=== PATIENT | female | born 1950 | race Caucasian/White ===

== ENCOUNTER → 2016-11-15 | Outpatient (CLI) | payer MEDICARE ==
[~2016-11-15] MED LIST: ADVIL100 MG/5 M PO; BACTRIM DS 8001 TAB PO; BICILLIN MU IM; CLEOCIN HCL300 MG PO; ERGOCALCIFER50000 IU PO; FASTIN30 MG PO; FLEXERIL5 MG PO; LEVAQUIN 5500 MG/TA1; LEVAQUIN 5500 MG/TA1 PO; LEVAQUIN 750MG750 M1 PO; NEXIUM 20MG CAP20 MG PO; NO HOME MEDICATIONS; NORCO 325 MG-51 TAB PO; OMNICEF 300MG300 MG PO; PHENERGAN 25 TA25 MG PO; PHENTERMINE15 MG; TYLENOL 325MG325 MG PO; ZITHROMAX 250M250 MG PO; ZITHROMAX500 M2 PO; [UNRECOGNIZED DRUG - OTHER] IM
== END ==
LOC: COL.RAD 09:00
DX: M54.6 Pain in thoracic spine (principal); M54.5 Low back pain
CPT/HCPCS: A9503

== ENCOUNTER 2016-11-20 09:27 | Day surgery (SDC) | payer MEDICARE ==
[2008-12-27 15:04] VITALS: BP 163/94
[~2016-11-20] VITALS: Ht 157.6 cm; Wt 88.6 kg
[2016-11-20] VITALS (8 sets, daily range): BP systolic 109–158; BP diastolic 70–96; PULSE 78–90; TEMP 97.7
== END 2016-11-20 15:05 | disposition home or self-care (01) ==
LOC: COL.RAD 09:27
DX: M46.24 Osteomyelitis of vertebra, thoracic region (principal); Z85.3 Personal history of malignant neoplasm of breast; Z85.42 Personal history of malignant neoplasm of other parts of uterus
CPT/HCPCS: J2250; J3010

== ENCOUNTER → 2016-11-25 | Outpatient (REF) | LOC: ZLAB.WCH 11:33 | DX: Z01.89 Encounter for other specified special examinations (principal) ==

== ENCOUNTER → 2016-12-02 | Outpatient (REF) | LOC: ZLAB.WCH 19:04 | DX: Z01.89 Encounter for other specified special examinations (principal) ==

== ENCOUNTER → 2016-12-08 | Outpatient (REF) | LOC: ZLAB.WCH 15:53 | DX: Z01.89 Encounter for other specified special examinations (principal) ==

== ENCOUNTER → 2016-12-14 | Outpatient (REF) | LOC: ZLAB.WCH 10:43 | DX: Z01.89 Encounter for other specified special examinations (principal) ==

== ENCOUNTER → 2016-12-21 | Outpatient (REF) | LOC: ZLAB.WCH 15:55 | DX: Z01.89 Encounter for other specified special examinations (principal) ==

== ENCOUNTER → 2016-12-29 | Outpatient (REF) | LOC: ZLAB.WCH 13:39 | DX: Z01.89 Encounter for other specified special examinations (principal) ==

== ENCOUNTER → 2017-01-18 | Outpatient (CLI) | payer MEDICARE | LOC: MC.RAD 09:40 | DX: Z12.31 Encounter for screening mammogram for malignant neoplasm of breast (principal); Z85.3 Personal history of malignant neoplasm of breast; Z90.11 Acquired absence of right breast and nipple ==

== ENCOUNTER → 2017-01-19 | Outpatient (REF) | LOC: ZLAB.WCH 11:35 | DX: Z01.89 Encounter for other specified special examinations (principal) ==

== ENCOUNTER 2017-09-17 15:22 | Inpatient (IN) | payer MEDICARE ==
[~2017-09-17] VITALS: Ht 160 cm; Wt 99.8 kg
[2017-09-17 15:47] LABS: COLLECTION METHOD CLEAN CATCH
[2017-09-17] MEDS ORDERED: PEN-VEE K500 MG PO (15:48)
[2017-09-17] MEDS ORDERED: NEURONTIN300 MG/CAP PO (15:49)
[2017-09-17 16:13] LABS: MUCOUS Present /lpf; PH 5 (5-8); URINE APPEARANCE Hazy; URINE BACTERIA Rare /hpf; URINE BILIRUBIN Negative (NEGATIVE); URINE BLOOD 1+ (NEGATIVE); URINE COLOR Yellow; URINE GLUCOSE 1+ (NEGATIVE); URINE KETONE Negative (NEGATIVE); URINE LEUKOCYTE ESTERASE 1+ (NEGATIVE); URINE PROTEIN(semi-quant) Negative (NEGATIVE); URINE UROBILINOGEN Negative (NEGATIVE); URINE WBC 20-50 /hpf
[2017-09-17 16:26] LABS: BASO % 0.1 % (0.0-2.0); EOS # 0.1 (0.0-0.7); EOS % 0.8 % (0-4.0); GRAN # 9.8 (1.4-6.5); GRAN % 82.8 % (42.2-75.2); HEMATOCRIT 41.6 % (37.0-47.0); HEMOGLOBIN 13.8 g/dl (12.5-16.0); LYMPH # 1.4 (1.2-3.4); MEAN CELL VOLUME 98 fl (80.0-100.0); MEAN CORPUSCULAR HEMOGLOBIN 33 pg (27.0-31.0); MEAN CORPUSCULAR HGB CONC 33 g/dl (33.0-37.0); MEAN PLATELET VOLUME 10.2 fl (7.4-10.4); MONO # 0.5 (0.1-0.6); PLATELET COUNT 163 K/mm3 (130-400); RED BLOOD COUNT 4.24 M/mm3 (4.10-5.30); WHITE BLOOD COUNT 11.8 K/mm3 (4.8-10.8)
[2017-09-17 16:43] LABS: ADJUSTED CALCIUM 9.5 mg/dL (8.4-10.2); ALBUMIN 4.3 gm/dL (3.5-5.0); CALCIUM 9.7 mg/dL (8.4-10.2); CREATININE, serum 0.83 mg/dL (0.52-1.25); POTASSIUM 3.8 mmol/L (3.4-5.0); TOTAL PROTEIN 7.2 gm/dL (6.4-8.2)
[2017-09-17 18:34] VITALS: BP 126/82; PULSE 102; TEMP 100.5
[2017-09-17 19:41] VITALS: BP 121/61; PULSE 104; TEMP 100.3
[2017-09-17 23:33] VITALS: BP 126/73; PULSE 107; TEMP 100.8
[2017-09-18 03:43] VITALS: BP 103/56; PULSE 89; TEMP 100.6
[2017-09-18 07:15] VITALS: BP 119/65; PULSE 89; TEMP 99.4
[2017-09-18 07:16] LABS: BASO % 0.2 % (0.0-2.0); EOS % 0.1 % (0-4.0); GRAN # 13.9 (1.4-6.5); GRAN % 86.1 % (42.2-75.2); HEMOGLOBIN 12.1 g/dl (12.5-16.0); LYMPH # 1.3 (1.2-3.4); LYMPH % 8.1 % (20.0-51.0); MEAN CELL VOLUME 99 fl (80.0-100.0); MEAN CORPUSCULAR HEMOGLOBIN 33 pg (27.0-31.0); MEAN CORPUSCULAR HGB CONC 34 g/dl (33.0-37.0); MEAN PLATELET VOLUME 10.6 fl (7.4-10.4); MONO # 0.8 (0.1-0.6); MONO % 4.8 % (1.7-9.3); PLATELET COUNT 124 K/mm3 (130-400); RED BLOOD COUNT 3.64 M/mm3 (4.10-5.30); WHITE BLOOD COUNT 16.1 K/mm3 (4.8-10.8)
[2017-09-18 07:21] LABS: HEMATOCRIT 35.9 % (37.0-47.0)
[2017-09-18 07:37] LABS: CALCIUM 8.7 mg/dL (8.4-10.2); CREATININE, serum 0.74 mg/dL (0.52-1.25); MAGNESIUM 1.5 mg/dL (1.6-2.3); POTASSIUM 3.7 mmol/L (3.4-5.0)
[2017-09-18 10:50] VITALS: BP 125/61; PULSE 83; TEMP 99.4
[2017-09-18 16:03] VITALS: BP 101/47; PULSE 83; TEMP 100.7
[2017-09-19 03:38] VITALS: BP 104/50; PULSE 82; TEMP 98.5
[2017-09-19 06:57] VITALS: BP 115/62; PULSE 72; TEMP 98.5
[2017-09-19 07:31] LABS: BASO % 0.1 % (0.0-2.0); EOS # 0.1 (0.0-0.7); EOS % 0.8 % (0-4.0); GRAN # 6.1 (1.4-6.5); GRAN % 76.9 % (42.2-75.2); LYMPH # 1.2 (1.2-3.4); LYMPH % 15.5 % (20.0-51.0); MEAN CELL VOLUME 100 fl (80.0-100.0); MEAN CORPUSCULAR HGB CONC 33 g/dl (33.0-37.0); MEAN PLATELET VOLUME 10.9 fl (7.4-10.4); MONO # 0.5 (0.1-0.6); MONO % 6.3 % (1.7-9.3); PLATELET COUNT 108 K/mm3 (130-400); RED BLOOD COUNT 3.18 M/mm3 (4.10-5.30); WHITE BLOOD COUNT 7.9 K/mm3 (4.8-10.8)
[2017-09-19 07:35] LABS: HEMATOCRIT 31.8 % (37.0-47.0); HEMOGLOBIN 10.5 g/dl (12.5-16.0); MEAN CORPUSCULAR HEMOGLOBIN 33 pg (27.0-31.0)
[2017-09-19 07:45] LABS: CALCIUM 8.8 mg/dL (8.4-10.2); CREATININE, serum 0.77 mg/dL (0.52-1.25); POTASSIUM 3.6 mmol/L (3.4-5.0)
[2017-09-19 10:50] VITALS: BP 108/49; PULSE 81; TEMP 99
[2017-09-19 16:07] VITALS: BP 127/86; PULSE 70; TEMP 98.5
[2017-09-19 21:25] VITALS: BP 111/55; PULSE 70; TEMP 98.5
[2017-09-19 23:20] VITALS: BP 121/61; PULSE 69; TEMP 98.5
[2017-09-20 08:00] VITALS: BP 117/69; PULSE 80; TEMP 98.5
[2017-09-20 08:24] LABS: BASO % 0.5 % (0.0-2.0); EOS # 0.2 (0.0-0.7); EOS % 4.2 % (0-4.0); GRAN # 2.1 (1.4-6.5); GRAN % 53.8 % (42.2-75.2); LYMPH # 1.2 (1.2-3.4); LYMPH % 30.8 % (20.0-51.0); MEAN CELL VOLUME 99 fl (80.0-100.0); MEAN CORPUSCULAR HGB CONC 33 g/dl (33.0-37.0); MEAN PLATELET VOLUME 10.5 fl (7.4-10.4); MONO # 0.4 (0.1-0.6); MONO % 10.2 % (1.7-9.3); PLATELET COUNT 123 K/mm3 (130-400); RED BLOOD COUNT 3.45 M/mm3 (4.10-5.30); WHITE BLOOD COUNT 3.8 K/mm3 (4.8-10.8)
[2017-09-20 08:30] LABS: HEMATOCRIT 34.3 % (37.0-47.0); HEMOGLOBIN 11.3 g/dl (12.5-16.0); MEAN CORPUSCULAR HEMOGLOBIN 33 pg (27.0-31.0)
[2017-09-20 08:34] LABS: CALCIUM 9.3 mg/dL (8.4-10.2); CREATININE, serum 0.78 mg/dL (0.52-1.25); MAGNESIUM 1.9 mg/dL (1.6-2.3); POTASSIUM 3.8 mmol/L (3.4-5.0)
[2017-09-20 12:33] VITALS: BP 130/64; PULSE 82; TEMP 98.6
[2017-09-20 15:32] VITALS: BP 111/62; PULSE 72; TEMP 98.6
[2017-09-20 19:56] VITALS: BP 136/66; PULSE 78; TEMP 98.9
[2017-09-21 03:49] VITALS: BP 127/70; PULSE 77; TEMP 98.2
[2017-09-21 07:53] VITALS: BP 120/72; PULSE 71; TEMP 98.2
[2017-09-21] MEDS ORDERED: ROCEPHIN 2GM VIAL21 IV (08:15)
[2017-09-21 09:27] LABS: BASO % 0.6 % (0.0-2.0); EOS # 0.2 (0.0-0.7); EOS % 5.1 % (0-4.0); GRAN # 1.7 (1.4-6.5); GRAN % 46.5 % (42.2-75.2); LYMPH # 1.3 (1.2-3.4); LYMPH % 36.3 % (20.0-51.0); MEAN CELL VOLUME 100 fl (80.0-100.0); MEAN CORPUSCULAR HGB CONC 33 g/dl (33.0-37.0); MEAN PLATELET VOLUME 10.9 fl (7.4-10.4); MONO # 0.4 (0.1-0.6); MONO % 10.7 % (1.7-9.3); PLATELET COUNT 158 K/mm3 (130-400); RED BLOOD COUNT 3.57 M/mm3 (4.10-5.30); WHITE BLOOD COUNT 3.6 K/mm3 (4.8-10.8)
[2017-09-21 09:32] LABS: HEMATOCRIT 35.6 % (37.0-47.0); HEMOGLOBIN 11.6 g/dl (12.5-16.0); MEAN CORPUSCULAR HEMOGLOBIN 32 pg (27.0-31.0)
[2017-09-21 09:35] LABS: CALCIUM 9.3 mg/dL (8.4-10.2); CREATININE, serum 0.77 mg/dL (0.52-1.25)
== END 2017-09-21 10:40 | disposition home or self-care (01) | DRG 872 ==
LOC: COL.ER 15:22 → MEDICAL 16:51 → EDBEDREQ 17:33 → MEDICAL 09-21 10:40
PROVIDERS: Family Medicine; Internal Medicine; Physician Assistant
DX: A40.1 Sepsis due to streptococcus, group B (principal); L03.113 Cellulitis of right upper limb; N39.0 Urinary tract infection, site not specified; R65.20 Severe sepsis without septic shock; I10 Essential (primary) hypertension; Z23 Encounter for immunization; Z85.3 Personal history of malignant neoplasm of breast; Z85.42 Personal history of malignant neoplasm of other parts of uterus; B95.1 Streptococcus, group B, as the cause of diseases classified elsewhere; R73.9 Hyperglycemia, unspecified; E83.42 Hypomagnesemia
CPT/HCPCS: 99222-AI; 99232-AI; 99239; J0696; J0712; J1170; J1644; J2185; J2405; J3475; J7030

== ENCOUNTER 2017-11-29 12:30 | Outpatient (RCR) | payer MEDICARE ==
[~2017-11-29 12:30] MED LIST changes: +NEURONTIN300 MG/CAP PO; +PEN-VEE K500 MG PO; +ROCEPHIN 2GM VIAL21 IV
== END 2018-01-08 14:16 | disposition home or self-care (01) ==
LOC: WSPT 12:30
DX: I89.0 Lymphedema, not elsewhere classified (principal)
CPT/HCPCS: G8987-GP; G8988-GP; G8989-GP

== ENCOUNTER → 2018-08-05 | Outpatient (CLI) | payer MEDICARE | LOC: MC.RAD 10:00 | DX: Z12.31 Encounter for screening mammogram for malignant neoplasm of breast (principal); Z98.82 Breast implant status; Z90.11 Acquired absence of right breast and nipple ==

== ENCOUNTER 2018-12-12 14:30 | Outpatient (RCR) | payer MEDICARE | END 2018-12-18 | disposition home or self-care (01) | LOC: WSPT | DX: I97.2 Postmastectomy lymphedema syndrome (principal); Z87.2 Personal history of diseases of the skin and subcutaneous tissue; Z85.3 Personal history of malignant neoplasm of breast; Z85.42 Personal history of malignant neoplasm of other parts of uterus; Z85.038 Personal history of other malignant neoplasm of large intestine; Z90.49 Acquired absence of other specified parts of digestive tract; Z90.11 Acquired absence of right breast and nipple | CPT/HCPCS: G8987-GP; G8988-GP ==

== ENCOUNTER → 2019-05-05 | Outpatient (CLI) | payer MEDICARE | LOC: COL.RAD 13:19 | DX: K76.0 Fatty (change of) liver, not elsewhere classified (principal); I72.8 Aneurysm of other specified arteries; R16.0 Hepatomegaly, not elsewhere classified; E11.9 Type 2 diabetes mellitus without complications; I10 Essential (primary) hypertension; R06.09 Other forms of dyspnea; E66.01 Morbid (severe) obesity due to excess calories; Z68.41 Body mass index [BMI] 40.0-44.9, adult; Z90.49 Acquired absence of other specified parts of digestive tract; Z90.11 Acquired absence of right breast and nipple; Z98.82 Breast implant status | CPT/HCPCS: Q9967 ==

== ENCOUNTER → 2019-09-16 | Outpatient (CLI) | payer MEDICARE | LOC: MC.RAD 10:37 | DX: Z12.31 Encounter for screening mammogram for malignant neoplasm of breast (principal); Z90.11 Acquired absence of right breast and nipple; Z98.82 Breast implant status ==

== ENCOUNTER → 2019-09-26 | Outpatient (CLI) | payer MEDICARE | LOC: COL.VAS 11:11 | DX: Z13.6 Encounter for screening for cardiovascular disorders (principal); I82.A21 Chronic embolism and thrombosis of right axillary vein ==

== ENCOUNTER 2020-01-05 23:13 | Inpatient (IN) | payer MEDICARE ==
[~2020-01-05] VITALS: Ht 160 cm; Wt 98.0 kg
--- NOTE | 2020-01-05 23:15 | NUR ---
Received patient via stretcher via EMS. Patient is a transfer from [place]. With INT on left AC G20. Patient currently not in pain but she is shivering. She is alert and oriented. Informed Dr. Espinosa via phone call that patient is already at room. He ordered urology template order.
--- NOTE | 2020-01-05 23:30 | NUR ---
Patient complains of severe pain on left plank pain. About to start CASTING TESTER Morphine but relatives said that she is allergic to Morphine. Patient had an episode of vomiting. Ondansetron given. Informed Dr. Espinosa that patient cannot have Morphine and ordered to have Dilaudid CASTING TESTER.
[2020-01-05 23:41] VITALS: BP 180/88; PULSE 122; TEMP 101.5
[2020-01-06] VITALS (229 sets, daily range): BP systolic 90–123; BP diastolic 58–85; PULSE 88–127; TEMP 98–103.1; O2SAT 90–98
--- NOTE | 2020-01-06 | NUR ---
Patient states she's on right arm restrict due to a right mastectomy. Placed ID band about arm restrict. Patient has a left chest port and says she's not using it.
--- NOTE | 2020-01-06 00:50 | NUR ---
Dilaudid PROCESS COACH started and verified with PALAK Ca. Informed patient about PROCESS COACH and how it works. Instructed patient that she's on NPO and I will do urine strain.
--- NOTE | 2020-01-06 01:50 | NUR ---
Patient is asleep and states pain has been reduced. Vital signs taken, BP= 123/62, Temp= 103.1F, SPO2= 88% on room air, BY=414. RR=21. Informed Dr. Espinosa via phone call and he ordered Tylenol PO for fever, Blood Culture X2, Rocephin 1 gm and Cystoscopy with left stent placement. Informed patient about the plans for surgery. Informed lab via phone call that patient is for blood culture.
--- NOTE | 2020-01-06 02:30 | NUR ---
Gave report to OR nurse via phone call. Tylenol given to patient for fever. Changed patient's gown. Rocephin not yet given as blood cultures were not done yet. Lanny informed Anesthesia office that patient is for surgery.
--- NOTE | 2020-01-06 02:50 | NUR ---
OR nurse informed me that MAINFRAME ANALYST need to be stopped before patient goes down for surgery. Last vital signs taken BP= 98/61, HR= 127, Temp=99.7, SPO2= 96% on O2 2l via NC, RR=20.
--- NOTE | 2020-01-06 04:15 | NUR ---
Received report from PALAK Matthew.
--- NOTE | 2020-01-06 04:31 | NUR ---
Received report from PACU nurseJana.
--- NOTE | 2020-01-06 04:34 | NUR ---
Patient arrives to ICU room 4 at this time. Patient is on 3L oxygen via nasal cannula with NS running to a peripheral line in the LAC. She is alert and oriented x 4. Denies presence of pain or discomfort. BP 90/78, HR 126, oral temp 98.2. Patient arrives with 16F dolan that is currently draining red-tinged urine. Patient reports presence of unaccessed implanted chest port, placed for chemo purposes, however, the patient has not received chemo for at least 5 years. Patient's coccyx is reddened although intact and her abdominal folds are red bilaterally. The right arm is swollen significantly, which the patient states is due to chronic/reoccuring cellulitis, which began roughly 1.5 years ago. Patient's medical history includes a right mastectomy; right arm is restricted and restricted extremity band is in place. Patient is currently resting quietly in bed, her son, Cholo is at the bedside. Will continue to monitor.
[2020-01-06 06:18] LABS: HEMOGLOBIN 10.8 g/dl (12.5-16.0); MEAN CELL VOLUME 100 fl (80.0-100.0); MEAN CORPUSCULAR HEMOGLOBIN 32 pg (27.0-31.0); MEAN CORPUSCULAR HGB CONC 32 g/dl (33.0-37.0); MEAN PLATELET VOLUME 11.3 fl (7.4-10.4); PLATELET COUNT 116 K/mm3 (130-400); REDCELL DISTRIBUTION WIDTH-CV 13.2 % (11.5-14.5)
[2020-01-06 06:56] LABS: CALCIUM 8.5 mg/dL (8.4-10.2); CREATININE, serum 1.29 (0.52-1.25); POTASSIUM 3.5 mmol/L (3.4-5.0)
--- NOTE | 2020-01-06 07:35 | NUR ---
Report given to PALAK West.
[2020-01-06 08:33] LABS: BAND 34 % (0-10); LYMPHOCYTE 1 % (20.0-51.0); NEUTROPHILS 64 % (42.0-75.2); PLATELET ESTIMATE DECREASED (NORMAL)
[2020-01-06 08:34] LABS: TOXIC GRANULATION PRESENT
--- NOTE | 2020-01-06 18:00 | NUR ---
[place] DCd Up to toilet for BM sm liquid brown. Assisted with pericare. Gait steady. Afebrile. BP improved. Received APAP for MURPHY. Pt reports has these at home.
--- NOTE | 2020-01-06 19:45 | NUR ---
Assessment complete; VS stable. Reports feeling some spasms during urination and reports a mild headache. Has belladonna suppository for spasms but pt denies offer for this medication. Requesting Tylenol for headache.
--- NOTE | 2020-01-06 23:36 | NUR ---
Report received from Lisa CID. Patient admitted from ICU to room 341 via wheelchair and up to the bathroom to void. Urine red tinged. Collection hat and strainer placed in bathroom. Patient alert and oriented x 4. SCD's reviewed and applied, however patient unable to remove and get to bathroom in time to void and voids on gown and bed pad. New gown applied and pullups given. See assessment. Home meds reviewed with patient and med reconciliation updated. Patient reports has bladder spasms with voids but declines medication.
[2020-01-07] MEDS ORDERED: TORVASTATIN PO (00:41)
[2020-01-07] MEDS ORDERED: PEN-VEE K500 MG PO (00:43)
[2020-01-07] MEDS ORDERED: VITAMIND3 5000 PO (00:44)
[2020-01-07] MEDS ORDERED: MOBIC15 MG PO (00:46)
[2020-01-07] MEDS ORDERED: OTEZLA PO (00:46)
[2020-01-07] MEDS ORDERED: LIPITOR 10MG10 MG PO (00:48)
--- NOTE | 2020-01-07 01:30 | NUR ---
Patient rests with eyes closed. Respirations with ease.
[2020-01-07 05:15] VITALS: BP 154/67; PULSE 120; TEMP 102.1
--- NOTE | 2020-01-07 05:45 | NUR ---
DR. JAVIER NOTIFIED OF PATIENTS TEMP 102.1 THEN RECHECK 101.5. PATIENT REPORTS HEADACHE 6/10 AND PAIN NOW JUST IN LEFT SIDE WHEN URINATES. HAS URINARY URGENCY AND FREQUENCY. NEW ORDERS RECEIVED FOR PYRIDIUM, TO GIVE TYLENOL AND CONTINUE HOME MEDS.
[2020-01-07 06:25] VITALS: PULSE 101; TEMP 101.5
--- NOTE | 2020-01-07 06:37 | NUR ---
REPORTS SHE WAS UP 7 TIMES DURING THE NIGHT TO THE BATHROOM BUT RESTED WELL IN BETWEEN.
--- NOTE | 2020-01-07 06:54 | NUR ---
REPORTS NAUSEA AND ZOFRAN GIVEN SIV.
[2020-01-07 08:20] VITALS: BP 130/59; PULSE 99; TEMP 98.7
[2020-01-07 08:53] LABS: MEAN CELL VOLUME 99 fl (80.0-100.0); MEAN CORPUSCULAR HEMOGLOBIN 32 pg (27.0-31.0); MEAN CORPUSCULAR HGB CONC 32 g/dl (33.0-37.0); MEAN PLATELET VOLUME 11.4 fl (7.4-10.4); PLATELET COUNT 110 K/mm3 (130-400); RED BLOOD COUNT 3.14 M/mm3 (4.10-5.30); REDCELL DISTRIBUTION WIDTH-CV 13.5 % (11.5-14.5)
[2020-01-07 09:06] LABS: CALCIUM 8.2 mg/dL (8.4-10.2); CREATININE, serum 0.93 (0.52-1.25); POTASSIUM 3.7 mmol/L (3.4-5.0)
[2020-01-07 09:37] LABS: BAND 23 % (0-10); LYMPHOCYTE 4 % (20.0-51.0); NEUTROPHILS 70 % (42.0-75.2); PLATELET ESTIMATE DECREASED (NORMAL); TOXIC GRANULATION PRESENT
--- NOTE | 2020-01-07 09:54 | NUR ---
SW met with the patient to discuss discharge plan. The patient lives alone in [place]. She states that she has family that live nearby. She reports independence with ADLs and does not have any DME. The patient's PCP is Dr. Barbra Satrr and she receives her medications at [facility]. She reports no difficulties obtaining her meds. The patient's DPOA-HC is in EMR. Her DPOA-HC is her children: Edelmira Landis (ph#[phone]), Cheryl Ball (ph#[phone]), or Cholo Ambrocio (ph#[phone]). The patient plans to return home upon discharge. No additional needs at this time.
--- NOTE | 2020-01-07 11:57 | NUR ---
Hospitalist team made aware of consults this am. Orders obtained. Zosyn per orders. Lr boluses per orders. Labs obtained. Patient continues to have urgency & frequency. Urine is orange from pyridum.
[2020-01-07 12:03] VITALS: BP 118/74; PULSE 82; TEMP 97.8
--- NOTE | 2020-01-07 13:00 | NUR ---
First visit from the strategic planning manager. No needs right now.
--- NOTE | 2020-01-07 17:08 | NUR ---
Patient continues to complain of headache. Hospitalist made aware reglan & benydrl for headache given per orders. Patient Iv in Ac went bad, 2 attempts were given for port acess, no blood return. New Iv to and started. Restricted right extremity. Ivf per orders & antibioitcs
[2020-01-07 17:14] VITALS: BP 162/78; PULSE 93; TEMP 98
--- NOTE | 2020-01-07 19:27 | NUR ---
Patient was able to sleep breifly, but still having a headache. She ate a small amount of her dinner. Bedside report to Eri CID
--- NOTE | 2020-01-07 20:00 | NUR ---
PATIENT RESTING IN BED DURING CHANGE OF SHIFT REPORT FROM DAY SHIFT NURSE. REPORTS CONTINUED HEADACHE DESPITE MEDS ALREADY GIVEN. DENIES DIZZINESS, CHEST PAIN/SHORTNESS OF BREATHING. DENIES H/O SINUS PROBLEMS OR CAFFEINE INTAKE.
[2020-01-07 21:35] VITALS: BP 162/83; PULSE 100; TEMP 98.1
--- NOTE | 2020-01-07 21:45 | NUR ---
PATIENT AGREED TO APPLY COOL WET WASHCLOTHE TO FOREHEAD/EYES FOR HEADACHE.
--- NOTE | 2020-01-07 22:43 | NUR ---
REPORTS COOL WET WASHCLOTHES HELPED WITH SOME OF THE EYE PRESSURE THAT WAS PRESENT WITH THE HEADACHE.
[2020-01-08 01:00] VITALS: BP 137/76; PULSE 108; TEMP 99.2
--- NOTE | 2020-01-08 02:19 | NUR ---
PATIENT RESTING IN BED WITH EYES CLOSED, BREATHING NONLABORED AND EVEN. IVF INFUSING WITHOUT INTERRUPTION. UP IN ROOM WHEN AWAKE WITHOUT PROBLEMS.
--- NOTE | 2020-01-08 03:37 | NUR ---
REPORTS STOOL IS LOOSE AT THIS TIME. REPORTS STILL HAS HEADACHE, COOL WET WASHCLOTHE HELPS WITH PRESSURE "BEHIND EYES". DENIES ANY OTHER NEEDS, REPORTS TYLENOL IS INEFFECTIVE FOR HEADACHE PAIN.
[2020-01-08 04:39] VITALS: BP 137/67; PULSE 83; TEMP 98.5
--- NOTE | 2020-01-08 07:00 | NUR ---
PATIENT IN BED RESTING DURING CHANGE OF SHIFT REPORT GIVEN TO DAY SHIFT NURSE. STILL COMPLAINS OF A HEADACHE THAT IS SOMEWHAT IMPROVED.
[2020-01-08 08:44] LABS: BASO % 0.3 % (0.0-2.0); EOS # 0.1 (0.0-0.7); EOS % 0.9 % (0-4.0); GRAN # 10.4 (1.4-6.5); GRAN % 81.8 % (42.2-75.2); HEMOGLOBIN 10.7 g/dl (12.5-16.0); LYMPH # 1.5 (1.2-3.4); LYMPH % 11.5 % (20.0-51.0); MEAN CELL VOLUME 96 fl (80.0-100.0); MEAN CORPUSCULAR HEMOGLOBIN 32 pg (27.0-31.0); MEAN CORPUSCULAR HGB CONC 33 g/dl (33.0-37.0); MONO # 0.6 (0.1-0.6); PLATELET COUNT 138 K/mm3 (130-400); RED BLOOD COUNT 3.39 M/mm3 (4.10-5.30); REDCELL DISTRIBUTION WIDTH-CV 13.1 % (11.5-14.5)
[2020-01-08 08:52] LABS: HEMATOCRIT 32.4 % (37.0-47.0)
[2020-01-08 08:55] VITALS: BP 168/89; PULSE 91; TEMP 97.9
[2020-01-08 08:57] LABS: CALCIUM 9.1 mg/dL (8.4-10.2); CREATININE, serum 0.91 (0.52-1.25); POTASSIUM 3.8 mmol/L (3.4-5.0)
--- NOTE | 2020-01-08 11:00 | NUR ---
PT IV INT'D THIS AM. RECIEVING CARLOS SCEDULED. ACCUCHECKS STARTED TODAY. PT STATED SHE IS FEELING ALOT BETTER TODAY THAT SHE HAD PRIOR. NO C/O PAIN THIS SHIFT.
[2020-01-08 11:45] VITALS: BP 149/75; PULSE 87; TEMP 98.7
--- NOTE | 2020-01-08 16:00 | NUR ---
PT HAD C/O LOOSE STOOLS THIS SHIFT. STATED SHE WAS GETTING SORE FROM HAVING STOOLS, PROVIDED SOME BARRIER CREAM FOR PT TO USE.
[2020-01-08 16:30] VITALS: BP 163/80; PULSE 90; TEMP 98.6
--- NOTE | 2020-01-08 19:00 | NUR ---
PATIENT SITTING ON SIDE OF BED DURING CHANGE OF SHIFT REPORT FROM DAY SHIFT NURSE. UP INDEPENDENTLY IN ROOM WITH NO COMPLAINTS OR PROBLEMS.
[2020-01-08 20:07] VITALS: BP 159/83; PULSE 84; TEMP 99.2
--- NOTE | 2020-01-08 22:35 | NUR ---
PATIENT REQUESTING ORDER FOR IMODIUM, CALLED DR FRANCIS REGARDING PATIENT'S REQUEST, ORDER FOR C.DIFF GIVEN AND STATED NO IMODIUM UNTIL PATIENT IS TESTED.
[2020-01-09] VITALS (7 sets, daily range): BP systolic 123–152; BP diastolic 60–102; PULSE 71–85; TEMP 97.8–98.3
--- NOTE | 2020-01-09 00:30 | NUR ---
PATIENT SLEEPING, DOES NOT AWAKEN WHEN DOOR TO ROOM OPENS, BREATHING NONLABORED AND EVEN.
--- NOTE | 2020-01-09 03:46 | NUR ---
UP IN RECLINER CHAIR, DOES NOT WANT TO REST IN BED FOR REMAINDER OF NIGHT DUE TO DISCOMFORT FROM LAYING IN BED. SPILLED USING URINAL ONTO BEDDING AND FLOOR OF ROOM. DENIES NEEDING PAIN MEDS CURRENTLY. TELE INTACT. UP USING WHEELED WALKER WITH NO PROBLEM. DENIES CHEST DISCOMFORT OR SHORTNESS OF BREATHE.
--- NOTE | 2020-01-09 03:49 | NUR ---
PATIENT SLEEPING WHEN ROOM ENTERED BY THIS NURSE, PATIENT AWAKENS TO NAME CALLED, SPEECH CLEAR. DENIES ANY NEEDS AT THIS TIME, RETURNED TO SLEEP, OBSERVED NONLABORED BREATHING WITH EVEN RATE.
--- NOTE | 2020-01-09 05:39 | NUR ---
Stool specimen collected and sent to lab as per DO for c.diff. Patient denies any further needs or concerns at this time. Up independently in room without any problems.
--- NOTE | 2020-01-09 06:53 | NUR ---
PATIENT SLEEPING, DOES NOT AWAKEN WHEN ROOM ENTERED, WITH CHANGE OF SHIFT REPORT GIVEN TO DAY SHIFT NURSE.
[2020-01-09 08:03] LABS: BASO % 0.4 % (0.0-2.0); EOS # 0.2 (0.0-0.7); EOS % 2.9 % (0-4.0); GRAN # 5.2 (1.4-6.5); GRAN % 68.8 % (42.2-75.2); HEMOGLOBIN 10.6 g/dl (12.5-16.0); LYMPH # 1.5 (1.2-3.4); LYMPH % 20.1 % (20.0-51.0); MEAN CELL VOLUME 97 fl (80.0-100.0); MEAN CORPUSCULAR HEMOGLOBIN 32 pg (27.0-31.0); MEAN CORPUSCULAR HGB CONC 33 g/dl (33.0-37.0); MEAN PLATELET VOLUME 10.4 fl (7.4-10.4); MONO # 0.5 (0.1-0.6); MONO % 6.8 % (1.7-9.3); PLATELET COUNT 142 K/mm3 (130-400); RED BLOOD COUNT 3.37 M/mm3 (4.10-5.30); REDCELL DISTRIBUTION WIDTH-CV 12.9 % (11.5-14.5)
[2020-01-09 08:04] LABS: HEMATOCRIT 32.6 % (37.0-47.0)
[2020-01-09 08:36] LABS: CALCIUM 9.2 mg/dL (8.4-10.2); CREATININE, serum 0.77 (0.52-1.25); MAGNESIUM 1.5 mg/dL (1.6-2.3); POTASSIUM 3.5 mmol/L (3.4-5.0)
--- NOTE | 2020-01-09 10:05 | NUR ---
Patient sitting up in bed. She continues to have frequent trips to the bathroom, stool & urine. Gi panel sent to lab. Hospitalist rounded & plan of care reviewed. Will continue to tommie.
--- NOTE | 2020-01-09 12:30 | NUR ---
Patient sitting up eating lunch. Patient aware of contact precautions due to loose stools & possible Cdiff. Patient Iv to L.hand leaking, new Iv to be attempted by Sophy CID for patient starting on cipro due to cultures results & sensitives.
--- NOTE | 2020-01-09 15:47 | NUR ---
SAILAJA met with the patient to follow up and review discharge plan. The patient is to tentatively discharge tomorrow, 01/09, pending cultures. The patient plans to return home. She did not have any questions or concerns for SW. SAILAJA presented and explained the IM form to the patient. The patient verbalized understanding, signed, and she was provided a copy. No additional needs at this time.
--- NOTE | 2020-01-09 18:28 | NUR ---
Patient independent in room. Denies pain. Report her loose stools have decreased & urgency & frequency also imporved. She is hopful for discharge home tmrw. Will report off to night nurse.
--- NOTE | 2020-01-09 19:00 | NUR ---
PT STILL HAVING LOOSE BROWN STOOLS FREQUENTLY. SEE MAR FOR IMMODIUM GIVEN. PT REPORTS RECTUM VERY SORE. PROVIDED PERINEAL LOTION SPRAY ALONG WITH OINTMENT.
--- NOTE | 2020-01-10 01:18 | NUR ---
PT UP TO BR. HAD ANOTHER BROWN SMALL THICK LOOSE STOOL. SEE MAR FOR IMMODIUM.
[2020-01-10 04:33] VITALS: BP 139/64; PULSE 79; TEMP 98.2
[2020-01-10 06:57] LABS: BASO % 0.5 % (0.0-2.0); CALCIUM 8.8 mg/dL (8.4-10.2); CREATININE, serum 0.59 (0.52-1.25); EOS # 0.2 (0.0-0.7); EOS % 2.9 % (0-4.0); GRAN % 61.3 % (42.2-75.2); HEMOGLOBIN 10.5 g/dl (12.5-16.0); LYMPH # 1.7 (1.2-3.4); LYMPH % 25.7 % (20.0-51.0); MEAN CELL VOLUME 96 fl (80.0-100.0); MEAN CORPUSCULAR HEMOGLOBIN 33 pg (27.0-31.0); MEAN CORPUSCULAR HGB CONC 34 g/dl (33.0-37.0); MEAN PLATELET VOLUME 11.1 fl (7.4-10.4); MONO # 0.5 (0.1-0.6); MONO % 8.1 % (1.7-9.3); PLATELET COUNT 150 K/mm3 (130-400); POTASSIUM 3.5 mmol/L (3.4-5.0); RED BLOOD COUNT 3.23 M/mm3 (4.10-5.30); REDCELL DISTRIBUTION WIDTH-CV 12.9 % (11.5-14.5)
[2020-01-10 07:05] LABS: MAGNESIUM 1.7 mg/dL (1.6-2.3)
[2020-01-10 07:14] VITALS: BP 144/62; PULSE 89; TEMP 98.8
--- NOTE | 2020-01-10 08:22 | NUR ---
NSG ASSESSMENT COMPLETED. PT STATES NO PAIN. PT REQUESTED IMODIUM AND STATES AFTER THE LAST AZO THAT SHE DOES NOT NEED ANYMORE AZO, NO BURNING WITH URINATION. PT ABLE TO MOVE FREELY AABOUT THE ROOM. RIGHT ARM IS MARKEDLY LARGER THAN THE LEFT. PT DOES HAVE LYMPH EDEMA IN RIGHT ARM. PT IN GOOD SPIRITS. DOES REPOERT SOMETHING IS GOING ON WITH HER TV. WHEN SHE GETS OUT OF BED THE TV GOES OFF AND WHEN SHE GETS BACK IN IT TURNS ON. IT ALSO DOES THIS INTERMITTENTLY DURING THE NIGHT. WILL PUT IN WORK ORDER. CALL LIGHT IN REACH NO BED ALARMS IN PLACE.
[2020-01-10] MEDS ORDERED: CIPRO 500MG TA500 MG PO (09:16)
--- NOTE | 2020-01-10 10:53 | NUR ---
SPOKE TO PT REGARDING DC INSTRUCTIONS. GAVE EDUCATION SHEETS, DC INFORMATION AND WENT OVER THE ALL THE INFORMATION. PT SIGNED RELEASE PAPERWORK. ALL BELONGINGS WERE PACKED BY PT. INT DC'D INTACT WITH PRESSURE DRESSING APPLIED. PT WAS TAKEN DOWNSTAIRS BY STAFF IN WHEELCHAIR, SON WITH PT.
== END 2020-01-10 10:55 | disposition home or self-care (01) | DRG 854 ==
LOC: ICU 23:13 → MEDICAL 23:13 → ICU 01-06 03:27 → SURG 01-06 23:16
PROVIDERS: Hospitalist; Internal Medicine; Nurse Practitioner Family; Physician Assistant; ADMIT Urology
PROC: 0T778DZ Dilation of Left Ureter with Intraluminal Device, Via Natural or Artificial Opening Endoscopic (ICD-10-PCS; principal; 2020-01-06 03:15)
PROC: BT1F1ZZ Fluoroscopy of Left Kidney, Ureter and Bladder using Low Osmolar Contrast (ICD-10-PCS; 2020-01-06 03:15)
DX: A41.51 Sepsis due to Escherichia coli [E. coli] (principal); N39.0 Urinary tract infection, site not specified; N17.9 Acute kidney failure, unspecified; N20.1 Calculus of ureter; K52.1 Toxic gastroenteritis and colitis; E87.2 Acidosis; R65.20 Severe sepsis without septic shock; T36.95XA Adverse effect of unspecified systemic antibiotic, initial encounter; E83.42 Hypomagnesemia; D69.6 Thrombocytopenia, unspecified; D64.9 Anemia, unspecified; E11.65 Type 2 diabetes mellitus with hyperglycemia; Z85.3 Personal history of malignant neoplasm of breast; I97.2 Postmastectomy lymphedema syndrome; I10 Essential (primary) hypertension; E78.5 Hyperlipidemia, unspecified; L40.9 Psoriasis, unspecified; Z88.5 Allergy status to narcotic agent; Z88.8 Allergy status to other drugs, medicaments and biological substances
CPT/HCPCS: OP; 99223; 99232-AI; 99233-AI; 99239; A9284; C1769; C2617; J0696; J0744; J1170; J1200; J2370; J2405; J2543; J2704; J2765; J3010; J3475; J7030; J7120; Q9967

== ENCOUNTER 2020-01-20 10:49 | Day surgery (SDC) | payer MEDICARE ==
[2008-12-27 15:04] VITALS: BP 163/94
[~2020-01-20] VITALS: Ht 160 cm; Wt 88.9 kg
[~2020-01-20 10:49] MED LIST changes: +CIPRO 500MG TA500 MG PO; +LIPITOR 10MG10 MG PO; +MOBIC15 MG PO; +OTEZLA PO; +TORVASTATIN PO; +VITAMIND3 5000 PO
[2020-01-20 11:35] VITALS: BP 151/92; PULSE 108; TEMP 98.1
--- NOTE | 2020-01-20 12:05 | NUR ---
IV STARTED L HAND AFTER INFUSING ABOUT 100CC, PATIENT C/O SITE HURTING WITH A SMALL LUMB SIZE FO GRAPE. IV AND INT DC'D
--- NOTE | 2020-01-20 12:06 | NUR ---
LEOLA SEQUEIRA RN HERE TO ACCESS PORT.
[2020-01-20 13:55] VITALS: BP 126/56; PULSE 73; TEMP 98.1
--- NOTE | 2020-01-20 13:55 | NUR ---
TO RM 2 PER CART FROM PACU. ALERT ORIENTED X3, TALKING TO STAFF. UPON RETURNING TO . PATIENT AMBULATED TO BATHROOM AND VOIDED.
--- NOTE | 2020-01-20 14:05 | NUR ---
SITTING ON SIDE OF BED. RECEIVED MUFFIN AND OJ.
[2020-01-20 14:10] VITALS: TEMP 98.1
[2020-01-20] MEDS ORDERED: PYRIDIUM 100MG100 MG PO (14:14)
[2020-01-20] MEDS ORDERED: NORCO 325 MG-51 TAB PO (14:15)
[2020-01-20 14:20] VITALS: BP 143/78; PULSE 80
--- NOTE | 2020-01-20 14:20 | NUR ---
ATE 100% AND TOLERATED WELL.
[2020-01-20 14:40] VITALS: BP 139/77; PULSE 94
--- NOTE | 2020-01-20 14:40 | NUR ---
PATIENT STATED SHE FELT SO MUCH BETTER SINCE THE STENT HAS BEEN REMOVED.
--- NOTE | 2020-01-20 14:45 | NUR ---
RECEIVED DISCHARGE INSTRUCTIONS AND VERBALIZED UNDERSTANDING WITH DAUGHTER AND SON AT BEDSIDE. FLUSHED PORT WITH NS 10CC FOLLOWED BY HEPARIN 5OOUNITS AND COVERED WITH BANDAIDE. A FEW DROPS BLEED OUT UNDER THE BANDAIDE.
--- NOTE | 2020-01-20 14:50 | NUR ---
AMBULATED TO BATHROOM AND DRESSED SELF IN BATHROOM.
--- NOTE | 2020-01-20 15:14 | NUR ---
DISCHARGED PER WC BY NURSING STAFF TO PRIVATE CAR IN CARE OF DAUGHTER.
== END 2020-01-20 15:02 | disposition home or self-care (01) ==
LOC: SDCO 10:49
DX: N20.1 Calculus of ureter (principal); M19.90 Unspecified osteoarthritis, unspecified site; G62.9 Polyneuropathy, unspecified; L40.9 Psoriasis, unspecified; Z90.10 Acquired absence of unspecified breast and nipple; Z90.49 Acquired absence of other specified parts of digestive tract; Z88.5 Allergy status to narcotic agent; Z88.7 Allergy status to serum and vaccine; Z79.899 Other long term (current) drug therapy
CPT/HCPCS: C1769; J0690; J1100; J1644; J1885; J2405; J2704; J3010; J7120

== ENCOUNTER → 2020-11-02 | Outpatient (CLI) | payer MEDICARE ==
[~2020-11-02] MED LIST changes: +PYRIDIUM 100MG100 MG PO
== END ==
LOC: COL.VAS 12:45
DX: R22.31 Localized swelling, mass and lump, right upper limb (principal)

== ENCOUNTER → 2021-01-18 | Outpatient (CLI) | payer MEDICARE | LOC: COL.RAD | DX: R09.89 Other specified symptoms and signs involving the circulatory and respiratory systems (principal) ==

== ENCOUNTER 2021-01-25 15:15 | Outpatient (RCR) | payer MEDICARE | END 2021-03-28 | disposition still patient (30) | LOC: WSST | DX: R09.89 Other specified symptoms and signs involving the circulatory and respiratory systems (principal); R06.02 Shortness of breath; G47.33 Obstructive sleep apnea (adult) (pediatric) ==

== ENCOUNTER → 2021-12-12 | Outpatient (CLI) | payer MEDICARE | LOC: MC.RAD 10-13 09:15 | DX: Z12.31 Encounter for screening mammogram for malignant neoplasm of breast (principal); N64.89 Other specified disorders of breast ==

== ENCOUNTER → 2021-12-14 | Outpatient (CLI) | payer MEDICARE | LOC: MC.RAD 06:57 | DX: R92.2 Inconclusive mammogram (principal); N64.9 Disorder of breast, unspecified ==

== ENCOUNTER → 2022-06-19 | Outpatient (CLI) | payer MEDICARE | LOC: MC.RAD 09:54 | DX: R92.8 Other abnormal and inconclusive findings on diagnostic imaging of breast (principal) ==

== ENCOUNTER → 2022-12-13 | Outpatient (CLI) | payer MEDICARE | LOC: MC.RAD 09:49 | DX: Z12.31 Encounter for screening mammogram for malignant neoplasm of breast (principal) ==